=== PATIENT | female | born 1945 ===

== ENCOUNTER 2023-12-10 23:59 | Outpatient (REF) | payer MEDICARE, BC, SELFPAY ==
[2023-12-10 21:44] LABS: TSH 1.09 uIU/Ml (0.36-3.74); Vitamin D 25 Total 15.8 ng/mL (30-100)
== END 2023-12-11 | disposition home or self-care (01) ==
LOC: NCHCN 23:59
PROVIDERS: Visit Provider Family Medicine
DX: E03.9 Hypothyroidism, unspecified (principal); M81.0 Age-related osteoporosis without current pathological fracture
CPT/HCPCS: 82306; 84443

== ENCOUNTER 2024-10-20 20:20 | Outpatient (REF) | payer MEDICARE, BC, SELFPAY ==
[2024-10-20 21:06] LABS: Anion Gap 11.9 mmol/L (3-11); CO2 24.1 mmol/L (21.0-32.0); Chloride 99 mmol/L (98-107); Potassium 4.1 mmol/L (3.5-5.1); Sodium 135 mmol/L (136-145)
== END 2024-10-20 20:21 | disposition home or self-care (01) ==
LOC: NCHCN 20:20
PROVIDERS: Visit Provider Family Medicine
DX: E87.1 Hypo-osmolality and hyponatremia (principal)
CPT/HCPCS: 80051